=== PATIENT | male | born 1960 | race Caucasian/White ===

== ENCOUNTER 2017-11-01 21:06 | Emergency (ER) | payer SELFPAY ==
[2017-11-01] MEDS ORDERED: Albuterol 0.083% 2.5 MG/3 ML Neb Soln NEB ONE (22:05)
[2017-11-01] MEDS ORDERED: Benzonatate 100 MG Cap PO ONE (22:06)
--- NOTE | 2017-11-01 23:18 | EDM.PDOC ---
ED HPI GENERAL MEDICAL PROBLEM - General Chief Complaint: Abdominal Pain Stated Complaint: TROUBLE BREATHING Time Seen by Provider: 11/01/17 21:53 Source of Information: Reports: Patient History Limitations: Reports: Other (Falling asleep and snoring while we talk. Patient took a Zanaflex a few hours prior to evaluation.) - History of Present Illness INITIAL COMMENTS - FREE TEXT/NARRATIVE: Patient is a 57-year-old male presents ED complaining of productive cough, shortness of breath, hiccups on and off for the past week, and no improvement with bronchitis with taking amoxicillin. Patient states she's had sinus congestion, runny nose, and some postnasal drip that precipitated this worsening cough approximate 6 days ago. He called his dentist was prescribed amoxicillin 500 mg 3 times a day. States the cough has not drastically improved. At times he has cough-induced emesis. He continues to have some intermittent wheezing throughout the course of the day. Continues to smoke one pack of cigarettes per day as well. In addition is experiencing some hiccups on and off for the past week. Worse with coughing and cough-induced emesis. Comes on with eating and drinking at times as well. He has no acid reflux. Denies any alcohol use. No symptoms as such previously. He is from [facility] and is here locally working in the [employer]. Denies any chest pain, nausea, abdominal pain, dysuria, dizziness, shortness of breath at rest, recent sick exposures, hemoptysis, or any additional complaints. He has a history of cervical neck surgery and is on Percocet and Zanaflex. He has no history of pneumonia. He has hx of sleep apnea. He is on no additional medications. No additional surgical history. No additional past medical history. Middle Abdomen Pain Score (Numeric/FACES): 9 - Related Data Allergies Allergy/AdvReac Type Severity Reaction Status Date / Time No Known Allergies Allergy Verified 11/01/17 21:13 Home Meds: Home Meds Albuterol [Proventil HFA] 200 puff INH Q4H PRN #1 inhaler 11/01/17 [Rx] Benzonatate [Tessalon Perle] 100 mg PO TID PRN #30 capsule 11/01/17 [Rx] Doxycycline [Vibramycin] 100 mg PO BID #20 cap 11/01/17 [Rx] Past Medical History Musculoskeletal History: Reports: Fracture Other Musculoskeletal History: wrist and neck Social & Family History - Family History Family Medical History: Noncontributory - Tobacco Use Smoking Status *Q: Current Some Day Smoker Years of Tobacco use: 20 Packs/Tins Daily: 0.1 - Caffeine Use Caffeine Use: Reports: None - Recreational Drug Use Recreational Drug Use: No ED ROS GENERAL - Review of Systems Review Of Systems: ROS reveals no pertinent complaints other than HPI. ED EXAM, GENERAL - Physical Exam Exam: See Below Exam Limited By: Other (Patient has fallen asleep as we speak. He is in no acute respiratory distress.) General Appearance: Alert, WD/WN, No Apparent Distress Eye Exam: Bilateral Eye: Normal Inspection Ears: Hearing Grossly Normal Nose: Normal Inspection Throat/Mouth: Normal Inspection, Normal Oropharynx, Normal Voice, No Airway Compromise Head: Atraumatic, Normocephalic Neck: Normal Inspection, Supple, Non-Tender, Full Range of Motion Respiratory/Chest: No Respiratory Distress, No Accessory Muscle Use, Rhonchi ( Bibasilar rhonchi cleared with coughing with expiratory wheezing throughout.) Cardiovascular: Normal Peripheral Pulses, Regular Rate, Rhythm, No Murmur Peripheral Pulses: 4+: Radial (L), Radial (R) GI/Abdominal: Normal Bowel Sounds, Soft, Non-Tender, No Organomegaly, No Distention Extremities: Normal Inspection, Non-Tender, No Pedal Edema Neurological: Alert, Oriented, CN II-XII Intact, Normal Cognition, No Motor/ Sensory Deficits Psychiatric: Normal Affect, Normal Mood Skin Exam: Warm, Dry, Intact, Normal Color, No Rash Course - Vital Signs Last Recorded V/S: Last Vital Signs Temp 98.3 F 11/01/17 21:10 Pulse 71 11/01/17 21:10 Resp 18 11/01/17 21:10 BP 149/78 H 11/01/17 21:10 Pulse Ox 100 11/01/17 21:10 - Orders/Labs/Meds Orders: Active Orders 24 hr Category Date Time Status RT Aerosol Therapy [RC] ASDIRECTED Care 11/01/17 22:07 Active Labs: Laboratory Tests 11/01/17 11/01/17 Range/Units 22:20 22:20 WBC 12.05 H (4.23-9.07) K/mm3 RBC 4.44 L (4.63-6.08) M/mm3 Hgb 13.9 (13.7-17.5) gm/L Hct 42.1 (40.1-51.0) % MCV 94.8 H (79.0-92.2) fl MCH 31.3 (25.7-32.2) pg MCHC 33.0 (32.2-35.5) g/dl RDW Std Deviation 45.0 H (35.1-43.9) fL Plt Count 275 (163-337) K/mm3 MPV 8.7 L (9.4-12.3) fl Neutrophils % (Manual) 54 (40-60) % Band Neutrophils % 0 (0-10) % Lymphocytes % (Manual) 20 (20-40) % Atypical Lymphs % 7 % Monocytes % (Manual) 17 H (2-10) % Eosinophils % (Manual) 1 (0.8-7.0) % Basophils % (Manual) 1 (0.2-1.2) Platelet Estimate Adequate Plt Morphology Comment Normal RBC Morph Comment Normal Sodium 138 (136-145) mEq/L Potassium 3.8 (3.5-5.1) mEq/L Chloride 101 (98-107) mEq/L Carbon Dioxide 31 (21-32) mEq/L Anion Gap 9.8 (5-15) BUN 10 (7-18) mg/dL Creatinine 1.1 (0.7-1.3) mg/dL Est Cr Clr Drug Dosing 81.32 mL/min Estimated GFR (MDRD) > 60 (>60) mL/min BUN/Creatinine Ratio 9.1 L (14-18) Glucose 99 (74-106) mg/dL Calcium 8.4 L (8.5-10.1) mg/dL Total Bilirubin 0.2 (0.2-1.0) mg/dL AST 20 (15-37) U/L ALT 23 (16-63) U/L Alkaline Phosphatase 62 (46-116) U/L C-Reactive Protein < 0.2 (<1.0) mg/dL Total Protein 7.0 (6.4-8.2) g/dl Albumin 3.1 L (3.4-5.0) g/dl Globulin 3.9 gm/dL Albumin/Globulin Ratio 0.8 L (1-2) Meds: Medications Discontinued Medications Generic Name Dose Route Start Last Admin Trade Name Freq PRN Reason Stop Dose Admin Albuterol 2.5 mg 11/01/17 22:05 11/01/17 22:15 Proventil Neb Soln NEB 11/01/17 22:06 2.5 mg ONETIME ONE Administration Benzonatate 200 mg 11/01/17 22:06 11/01/17 22:21 Tessalon Perles PO 11/01/17 22:07 200 mg ONETIME ONE Administration - Re-Assessments/Exams Free Text/Narrative Re-Assessment/Exam: Will order basic labs including CBC, chem 14, and CRP. Chest x-ray two-view ordered. I have ordered albuterol 2.5 mg neb treatment and also Tessalon Perles 200 mg by mouth. Patient on examination did have episode of cough-induced emesis with auscultation of the lung sounds. Labs reviewed: White blood cell count 12.05, hemoglobin 13.9, platelet count 275 , no neutrophilia or left shift. CMP essentially normal. CRP less than 0.2. Chest x-ray two-view impression: findings concerning for left lower lobar pneumonia. Final interpretation is pending. Patient has community aquired pneumonia. Orderd doxycycline 200 mg PO and mucinex 1200 mg po. Will discharge home with prescription for albuterol inhaler , doxy, and tessalon perles. Discontinued amoxicillin. During E.D. visit was sleeping most of the time with loud snoring. Per nursing staff patients O2 sats would drop. They placed him on O2 via NC with resolution. Patient was breathing through his mouth during this episodes. He has history of sleep apnea. The patient remained hemodynamically stable while under my care in the E.D. I discussed the concerning symptoms for which to return to the E.D. with the patient/family. The patient/family verbalized understanding. All questions were answered. Departure - Departure Time of Disposition: 23:31 Disposition: Home, Self-Care 01 Condition: Good Clinical Impression: Community acquired pneumonia Qualifiers: Laterality: left Lung location: lower lobe of lung Qualified Code(s): J18.1 - Lobar pneumonia, unspecified organism - Discharge Information Prescriptions: Albuterol [Proventil HFA] 200 puff INH Q4H PRN #1 inhaler PRN Reason: Shortness Of Breath Benzonatate [Tessalon Perle] 100 mg PO TID PRN #30 capsule PRN Reason: Cough Doxycycline [Vibramycin] 100 mg PO BID #20 cap Instructions: Community-Acquired Pneumonia, Adult, [id number], Community- Acquired Pneumonia, Adult Referrals: PCP,Not In Area [Primary Care Provider] - Forms: ED Department Discharge, ED Return to Work/School Form Additional Instructions: Take the doxycycline, Tessalon Perles, albuterol as prescribed. Take Mucinex 600 mg twice a day with copious amounts of water for duration of antibiotic therapy. Followup with a Primary Care Provider at conclusion of therapies to ensure resolution of pneumonia. Call and make an appt with a PCP at [facility]. Please return to the E.D. if you develop any new or worsening symptoms. STOP SMOKING. - My Orders Last 24 Hours: My Active Orders 11/01/17 22:07 RT Aerosol Therapy [RC] ASDIRECTED - Assessment/Plan Last 24 Hours: My Active Orders 11/01/17 22:07 RT Aerosol Therapy [RC] ASDIRECTED
--- NOTE | 2017-11-02 07:28 | CR ---
Chest: Two views of the chest were obtained. Comparison: No prior chest x-ray. Heart size and mediastinum are normal. Parenchymal density is noted within the left base. Lung markings slightly increased. Prior cervical spine surgery is noted. Degenerative spurring is noted within the spine. Impression: 1. Probable early pneumonia within the left lung base. Mild bilateral bronchitis is also suspected. 2. Other incidental findings. Diagnostic code #3
== END 2017-11-01 23:38 | disposition home or self-care (01) ==
LOC: JD.ED 21:06
DX: J18.9 Pneumonia, unspecified organism (principal); F17.210 Nicotine dependence, cigarettes, uncomplicated
CPT/HCPCS: 36415; 71046; 80053; 85007; 85027; 86140; 94640; 99285; A9270